=== PATIENT | male | born 1935 | race Caucasian/White ===

== ENCOUNTER → 2018-04-30 | Outpatient (CLI) | payer BC ==
[2015-10-03 14:30] VITALS: BP 182/78
--- NOTE | 2018-04-30 13:46 | RAD ---
Chest, 2 views, 04/30/2018: HISTORY: Pleurisy, right-sided pain Comparison is made to a study from 03/31/2015. The heart size and pulmonary vascularity are normal. No pulmonary infiltrate is seen. No significant pleural fluid is evident. Moderate spurring is present in the spine. IMPRESSION: No acute cardiopulmonary abnormality is detected. Electronically signed by: Leonard Hay MD (04/30/2018 1:42 PM) [facility]
== END | disposition home or self-care (01) ==
LOC: RAD 13:05
PROVIDERS: ATTEND Internal Medicine
DX: M46.04 Spinal enthesopathy, thoracic region (principal); I10 Essential (primary) hypertension; E03.9 Hypothyroidism, unspecified
CPT/HCPCS: 71046

== ENCOUNTER → 2020-12-21 | Outpatient (CLI) | payer BC ==
[2019-03-05 22:08] VITALS: BP 173/86
[~2020-12-21] MED LIST: DIPH25CA58 PO; FAMO-63 PO; PRED20TA PO
--- NOTE | 2020-12-21 16:20 | RAD ---
XR PELVIS 1-2V History: Left iliac crest pain. Comparison: None. Technique: AP view of the pelvis. Findings: Decreased osseous mineralization. Mild bilateral femoral acetabular joint space narrowing and acetabu lar subchondral cystic change. Mild degenerative changes of the sacroiliac joints. Degenerative bean es of lower lumbar spine. Partially visualized penile prostheses components with left pelvic reservoi r. Unremarkable appearance of the iliac crest. Impression: 1. No acute osseous abnormality of the pelvis. 2. Degenerative changes of the hips, sacroiliac joints and lumbar spine. Electronically signed by: Prashant Gao MD (12/21/2020 4:17 PM) [facility]
== END ==
LOC: RAD 13:33
PROVIDERS: ATTEND Internal Medicine
DX: M76.22 Iliac crest spur, left hip (principal); M16.12 Unilateral primary osteoarthritis, left hip; M47.816 Spondylosis without myelopathy or radiculopathy, lumbar region; M46.1 Sacroiliitis, not elsewhere classified
CPT/HCPCS: 72170

== ENCOUNTER 2021-03-21 14:38 | Inpatient (IN) | payer BC ==
[~2021-03-21] VITALS: Ht 172.7 cm; Wt 75.5 kg
[2021-03-21] MEDS ORDERED: IV NORMAL SALINE 1000ML BAG 1,000 ML IV SCH (15:15)
--- NOTE | 2021-03-21 15:28 | PHYS DOC ---
Past Medical History Past Medical History: Depression, GERD, Hypertension, Hypothyroid Past Surgical History: Lumbar Laminectomy Additional Past Surgical Histo: EYE SX, Carotid Sx, Back Surgery Smoking Status: Never Smoker Alcohol Use: Occasionally Drug Use: None General Adult EDM: Chief Complaint: WEAKNESS/GENERALIZED HPI: HPI: Patient is a 86 year old male who presents with began having a cough, shortness of air and weakness this past and there was Covid positive on March 18. His is hospitalized here he states. He states his daughter works up on the fourth floor. He states that his daughter and her the whole family has Covid. He is not sure if he has been vaccinated for Covid. Today's complaint is cough, shortness of air, weakness and unable to care for himself. He states he has not been in bed since yesterday and has not drink any fluids or taken any of his medications. He is hypertensive. Patient rates his overall generalized body aches at a 7 out of 10. He does state that with all the coughing he does have some chest pain. Patient states that he has a history of lumbar laminectomy, hypothyroidism, hypertension, GERD, depression, carotid surgery, eye surgery, back surgery. Review of Systems: Review of Systems: Constitutional: + fever or chills. [] Eyes: Denies change in visual acuity. [] HENT: Denies nasal congestion or sore throat. [] Respiratory: + cough or +shortness of breath. [] Cardiovascular: +chest pain with coughing or edema. [] GI: Denies abdominal pain, nausea, vomiting, bloody stools or diarrhea. + Lack of appetite [] : Denies dysuria. [] Musculoskeletal: Denies back pain or joint pain. + Generalized body aches [] Integument: Denies rash. [] Neurologic: Denies headache, focal weakness or sensory changes. + Dizziness [] Endocrine: Denies polyuria or polydipsia. [] Lymphatic: Denies swollen glands. [] Psychiatric: Denies depression or anxiety. [] Heart Score: C/O Chest Pain: Yes Risk Factors: Risk Factors: DM, Current or recent (<one month) smoker, HTN, HLP, family history of CAD, obesity. Risk Scores: Score 0 - 3: 2.5% MACE over next 6 weeks - Discharge Home Score 4 - 6: 20.3% MACE over next 6 weeks - Admit for Clinical Observation Score 7 - 10: 72.7% MACE over next 6 weeks - Early Invasive Strategies Current Medications: Current Medications Medications (Trade) Dose Ordered Sig/Tiffanie Start Time Stop Time Status Last Admin Dose Admin Methylprednisolone Sodium Succinate (SOLU-Medrol 40MG VIAL) 80 mg 1X ONCE 03/21/21 15:45 03/21/21 15:46 Sodium Chloride 1,000 ml @ 1,000 mls/hr Q1H 03/21/21 15:15 03/21/21 16:14 Allergies: Allergies: Allergies Coded Allergies Type Severity Reaction Last Updated Verified No Known Drug Allergies 10/03/15 No Physical Exam: PE: Constitutional: Well developed, well nourished, no acute distress, non-toxic appearance. [] HENT: Normocephalic, atraumatic, bilateral external ears normal, oropharynx moist, no oral exudates, nose normal. [] Eyes: PERRLA, EOMI, conjunctiva normal, no discharge. [] Neck: Normal range of motion, no tenderness, supple, no stridor. [] Cardiovascular:Heart rate regular rhythm, no murmur [] Lungs & Thorax: Bilateral breath sounds clear and lower diminished to auscultation [] Abdomen: Bowel sounds normal, soft, no tenderness, no masses, no pulsatile masses. [] Skin: Warm, dry, no erythema, no rash. [] Back: No tenderness, no CVA tenderness. [] Extremities: No tenderness, no cyanosis, no clubbing, ROM intact, no edema. [] Neurologic: Alert and oriented X 3, normal motor function, normal sensory fun ction, no focal deficits noted. [] Psychologic: Affect normal, judgement normal, mood normal. [] Current Patient Data: Vital Signs: Vital Signs Date Time Temp Pulse Resp B/P (MAP) Pulse Ox O2 Delivery O2 Flow Rate FiO2 03/21/21 14:55 98.9 67 22 218/93 94 98.9 EKG: EK and read by Dr. Beauchamp as a sinus rhythm and no STEMI Radiology/Procedures: Radiology/Procedures: [] Impression: [facility] [address] [place], [place] [id number] IMAGING REPORT Signed PATIENT: CHANELLE GOMES ACCOUNT: [id number] : 1935 LOCATION: ER AGE: 86 SEX: M EXAM STATUS: REG ER ORD. PHYSICIAN: WILNER SALAS APRN REASON: covid+, soa PROCEDURE: PORTABLE CHEST 1V Portable chest x-ray compared to PA and lateral dated April 302017 for shortness of air, Covid Positive. FINDINGS: There are peripheral infiltrates throughout the right lung concerning for active infection. Less conspicuous fine reticular changes throughout the left lung base may represent infiltrate as well. There is new right atrial enlar gement. No pleural effusions. No pneumothorax. IMPRESSION: 1. Bilateral infiltrates, right greater than left, concerning for active infection. 2. New cardiomegaly with right atrial enlargement. Electronically signed by: Armen Melendez MD (03/21/2021 4:06 PM) [id number] DICTATED and SIGNED BY: ARMEN MELENDEZ MD DATE: 03/21/21 [id number] [facility] [address] [place] [address] IMAGING REPORT Signed PATIENT: CHANELLE GOMES ACCOUNT: [id number] : 1935 LOCATION: ER AGE: 86 SEX: M EXAM STATUS: REG ER ORD. PHYSICIAN: WILNER SALAS APRN REASON: dizziness,jane, hypertensive PROCEDURE: CT HEAD WO CONTRAST PQRS Compliance Statement: One or more of the following individualized dose reduction techniques were utilized for this examination: 1. Automated exposure control 2. Adjustment of the mA and/or kV according to patient size 3. Use of iterative reconstruction technique CT head without contrast 03/21/2021 4:51 PM INDICATION: Dizziness, headache and hypertensive. COMPARISON: None available TECHNIQUE: Multiple axial CT images of the head were obtained from skull base through the vertex without intravenous contrast. FINDINGS: Head: Ventricles, sulci and basal cisterns are within normal limits. There is no hydrocephalus. Knapp-white matter differentiation is normal. There is no acute intracranial hemorrhage. There is no mass, mass effect or midline shift. Posterior fossa is normal in appearance. Visualized portions of the orbits are normal with exception of bilateral lens replacement. Paranasal mild mucosal thickening of the right maxillary sinus. Mild mucosal thickening of ethmoid air cells. Mastoid air cells are well aerated. Scalp and calvaria are normal. IMPRESSION: No acute intracranial hemorrhage. Electronically signed by: Daisy Ramos MD (03/21/2021 5:04 PM) [id number] DICTATED and SIGNED BY: DAISY RAMOS MD DATE: 03/21/21 [id number] Course & Med Decision Making: Course & Med Decision Making Pertinent Labs and Imaging studies reviewed. (See chart for details) See HPI. Alert and oriented x4. Very weak and unable to ambulate at this time. Skin pink warm and dry. Hypertensive. He is given hydralazine and fluids and Zosyn in the ED. He is also given Solu-Medrol. 93% on room air. Speaks in full clear sentences. No respiratory distress. PERRLA. Chest x-ray shows bilateral pneumonia and a new large cardiac. ABG shows hypoxia. Patient is placed on 3 L of oxygen. I called Dr. Sultana and he states to go ahead and admit the patient and start him on Remdesivir. I called pharmacy and they are ordering this. [] Villa Disclaimer: Villa Disclaimer: This electronic medical record was generated, in whole or in part, using a voice recognition dictation system. COVID-19 Patient Risks: Age 65 or older: Yes Sign of co-morbidity: Yes Exp to person + for COVID: Yes Exp to PUI: Yes Travel from affected area: No Lower respiratory symptoms: Yes Fever: No Other: Yes (lack of appetite, dizzy, bodyaches) PPE Use: Full PPE with N95 mask or PAPR: Yes Departure Departure Impression: Primary Impression: Pneumonia due to COVID-19 virus Additional Impression: Hypoxia Disposition: 09 ADMITTED INPATIENT Admitting Physician: Ok Sultana Condition: STABLE Referrals: OK SULTANA MD (PCP) WILNER SALAS APRN Mar 21, 2021 15:28
[2021-03-21] MEDS ORDERED: hydrALAZINE 20 MG/ML VIAL. IVP ONE (15:30)
[2021-03-21] MEDS ORDERED: PIPERACILLIN/TAZOBACTAM 3.375 GM in IV NORMAL SALINE 50ML 50 ML IV ONE (16:00)
--- NOTE | 2021-03-21 16:09 | RAD ---
Portable chest x-ray compared to PA and lateral dated April 302017 for shortness of air, Covi d Positive. FINDINGS: There are peripheral infiltrates throughout the right lung concerning for active infection. Less conspicuous fine reticular changes throughout the left lung base may represent infiltrate as we ll. There is new right atrial enlargement. No pleural effusions. No pneumothorax. IMPRESSION: 1. Bilateral infiltrates, right greater than left, concerning for active infection. 2. New cardiomegaly with right atrial enlargement. Electronically signed by: Armen Giron MD (03/21/2021 4:06 PM) [id number]
[2021-03-21 16:27] LABS: BASE EXCESS COOX 3 mmol/L (-3-3); HCO3 COOX 27 mmol/L (21-28); METHEMOGLOBIN 0.4 % (0.0-1.9); OXYHEMOGLOBIN 88.8 %; PCO2 COOX 40 mmHg (35-46); PO2 COOX 54 mmHg (65-108); SAT O2 COOX 89 % (92-99)
[2021-03-21 16:32] LABS: BASO % 0 % (0-3); EOS % 0 % (0-3); HEMATOCRIT 34.7 % (39.0-53.0); HEMOGLOBIN 11.8 g/dL (13.0-17.5); LYMPH # 0.6 x10^3/uL (1.0-4.8); LYMPH % 16 % (24-48); MEAN CORPUSCULAR HEMOGLOBIN 28 pg (25-35); MEAN CORPUSCULAR HGB CONC 34 g/dL (31-37); MEAN CORPUSCULAR VOLUME 83 fL (79-100); MONO # 0.3 x10^3/uL (0.0-1.1); MONO % 7 % (0-9); NEUT # 3.1 x10^3/uL (1.8-7.7); NEUT % 77 % (31-73); PLATELET COUNT 126 x10^3/uL (140-400); RED BLOOD COUNT 4.19 x10^6/uL (4.30-5.70); RED CELL DISTRIBUTION WIDTH 13.4 % (11.5-14.5)
[2021-03-21] MEDS: methylPREDNISolone SOD SUCC PF 40 MG/ML VIAL. IV ONE ×2 (16:37→16:41)
[2021-03-21 16:42] LABS: CALCIUM 8.3 mg/dL (8.5-10.1)
--- NOTE | 2021-03-21 16:47 | EKG ---
[facility] [address] [place] [address] Test Date: 2021-03-21 Test Time: 16:32:52 Pat Name: CHANELLE MIREYA Department: Room: Gender: M Social Research Assistant: : 1935 Requested By: WILNER SALAS Order Number: [id number] Reading MD: Measurements Intervals Cisco Rate: 67 P: 53 AR: 158 QRS: 46 QRSD: 88 T: 56 QT: 400 QTc: 426 Interpretive Statements SINUS RHYTHM INCOMPLETE RIGHT BUNDLE BRANCH BLOCK OTHERWISE NORMAL ECG RI6.02 No previous ECG available for comparison
[2021-03-21 16:49] LABS: ALBUMIN 3.4 g/dL (3.4-5.0); TOTAL BILIRUBIN 0.4 mg/dL (0.2-1.0); TOTAL PROTEIN 6.9 g/dL (6.4-8.2)
--- NOTE | 2021-03-21 17:06 | RAD ---
RS Compliance Statement: One or more of the following individualized dose reduction techniques were utilized for this examinat ion: 1. Automated exposure control 2. Adjustment of the mA and/or kV according to patient size 3. Use of iterative reconstruction technique CT head without contrast 03/21/2021 4:51 PM INDICATION: Dizziness, headache and hypertensive. COMPARISON: None available TECHNIQUE: Multiple axial CT images of the head were obtained from skull base through the vertex with out intravenous contrast. FINDINGS: Head: Ventricles, sulci and basal cisterns are within normal limits. There is no hydrocephalus. Knapp-white matter differentiation is normal. There is no acute intracranial hemorrhage. There is no mass, mass e ffect or midline shift. Posterior fossa is normal in appearance. Visualized portions of the orbits are normal with exception of bilateral lens replacement. Paranasal mild mucosal thickening of the right maxillary sinus. Mild mucosal thickening of ethmoid air cells. M astoid air cells are well aerated. Scalp and calvaria are normal. IMPRESSION: No acute intracranial hemorrhage. Electronically signed by: Maria Fernanda Carrillo MD (03/21/2021 5:04 PM) [id number]
[2021-03-21] MEDS ORDERED: REMDESIVIR LOAD in IV NORMAL SALINE 250ML TV IV ONE (18:00)
[2021-03-21 19:59] VITALS: BP 122/79
[2021-03-21] MEDS ORDERED: ASPI-630 PO (22:01)
[2021-03-21] MEDS ORDERED: NIFE30TA95 PO (22:01)
[2021-03-21] MEDS ORDERED: ENAL20TA10 PO (22:01)
[2021-03-21] MEDS ORDERED: PANT40TA6 PO (22:01)
[2021-03-21] MEDS ORDERED: SIMV10TA15 PO (22:01)
[2021-03-21] MEDS ORDERED: METO50TA6 PO (22:01)
[2021-03-21] MEDS ORDERED: HYDR-2869 PO (22:01)
[2021-03-21] MEDS ORDERED: FLUO20CA20 PO (22:01)
[2021-03-21] MEDS ORDERED: LEVO75TA5 PO (22:01)
[2021-03-21 23:47] VITALS: BP 196/91
[2021-03-22] VITALS (7 sets, daily range): BP systolic 170–204; BP diastolic 65–92
[2021-03-22] MEDS: hydrALAZINE 20 MG/ML VIAL. IVP PRN ×2 (02:06→15:57)
[2021-03-22] MEDS: PANTOPRAZOLE 40 MG TABLET.DR. PO SCH (06:10)
[2021-03-22] MEDS: LEVOTHYROXINE 75 MCG TABLET PO SCH (06:10)
[2021-03-22] MEDS: FLUoxetine HCL 20 MG CAPSULE PO SCH (08:49)
[2021-03-22] MEDS: METOPROLOL TART IMMED RELEASE 50 MG TABLET. PO SCH ×2 (08:49→20:34)
[2021-03-22] MEDS: LISINOPRIL 20 MG TABLET PO SCH ×2 (08:50→20:33)
[2021-03-22] MEDS: ASPIRIN CHEWABLE 81 MG TABLET. PO SCH (08:51)
[2021-03-22] MEDS: DEXAMETHASONE 4 MG TABLET PO SCH (08:51)
[2021-03-22] MEDS: cefTRIAXone IV Push 1 GM VIAL. IVP SCH (08:54)
--- NOTE | 2021-03-22 09:23 | PDOC ---
Provider Note Date of Service: DATE: 03/22/21 TIME: 09:22 Provider Note Pt seen.H&P dictated.#[id number]. Justifications for Admission Other Justification RAMONE SULTANA MD Mar 22, 2021 09:23
--- NOTE | 2021-03-22 10:27 | CONS ---
DATE OF CONSULTATION: 03/22/2021 PULMONARY CONSULTATION ATTENDING PHYSICIAN: Ok Bucio MD REASON FOR CONSULTATION: Respiratory failure, COVID-19 pneumonia. HISTORY OF PRESENT ILLNESS: The patient is an 86-year-old male who has been recently diagnosed with COVID-19. His entire family is COVID positive. He came into the hospital with increased cough, shortness of breath and hypoxia. His chest x-ray was reviewed and it was consistent with faint bilateral interstitial infiltrates suggestive of COVID-19 pneumonia, more on the right than on the left. He is currently on 3 liters of oxygen and started on remdesivir along with dexamethasone. No headache, no nausea, vomiting. No dysuria. No diarrhea. PAST MEDICAL HISTORY: Significant for depression, GERD, hypertension and hypothyroidism. PAST SURGICAL HISTORY: Laminectomy. ALLERGIES: None. MEDICATIONS: Reviewed as listed in the MRAD. REVIEW OF SYSTEMS: A 12-point system obtained. Pertinent positives as discussed in my history of present illness, otherwise noncontributory. All systems that were negative were reviewed as well. SOCIAL HISTORY: Nonsmoker. PHYSICAL EXAMINATION: VITAL SIGNS: Reviewed. T-max of 99.1, blood pressure on the high side 204 systolic. Pulse ox 97% on 3 liters. GENERAL: Visual exam done. No obvious respiratory distress. No paradoxical breathing. EXTREMITIES: No leg edema. LABORATORY DATA: Reviewed. White cell count 4.0, hemoglobin 11.8, platelets are 126, BUN and creatinine normal. ABGs reviewed, pH 7.45, pCO2 of 40 and a pO2 of 54 on room air. IMPRESSION: 1. Acute hypoxic respiratory failure secondary to COVID-19 viral pneumonia. 2. Abnormal chest x-ray with faint interstitial infiltrates, mostly on the right side suggestive of COVID-19 viral pneumonia. 3. No significant tobacco history. RECOMMENDATIONS: 1. Continue present oxygen, keep saturation 92 and above. Currently stable on 3 liters. 2. Finish the course of dexamethasone along with remdesivir. 3. Lovenox for DVT prophylaxis. 4. Empiric antibiotics initiated. 5. The patient pulmonary status stable. Please call us if his oxygen requirement worsens. Otherwise, we will see him on a p.r.n. basis. SVETLANA DR: Daina TID: [id number]
--- NOTE | 2021-03-22 11:05 | HP ---
ADMIT DATE: 03/21/2021 REASON FOR ADMISSION TO THE HOSPITAL: COVID pneumonia, hypoxia, respiratory failure. HISTORY OF PRESENT ILLNESS: The patient is an 86-year-old male. The patient comes in because of not feeling well, dizzy, lightheaded and shortness of breath. The patient's whole family was contracted COVID. His was in the hospital at least 4-5 days with COVID pneumonia and his daughter, son and son-in-law everybody had exposed to COVID. He was having more difficulty with short of breath, lightheaded, dizzy, came to the Emergency Room. Chest x-ray shows some infiltrate in the lung. His blood pressure was high at 218/93, went up to 222/110. The patient was admitted to the hospital and started on remdesivir and IV Rocephin and dexamethasone. Pulmonary was consulted. PAST MEDICAL HISTORY: The patient has a history of hypertension, GERD, arthritis. He has had a history of anxiety, depression and hyperlipidemia. PAST SURGICAL HISTORY: He denies any major surgeries. ALLERGIES: No known allergies. MEDICATIONS AT HOME: Aspirin 81 mg daily, enalapril 20 mg twice a day, fluoxetine 20 mg daily, hydralazine 50 mg twice a day, levothyroxine 75 mcg daily, metoprolol 50 mg twice a day, nifedipine 30 mg daily, pantoprazole 40 mg daily, simvastatin 10 mg daily. PERSONAL HISTORY: Denies smoking, alcohol or drug abuse. FAMILY HISTORY: Unremarkable. REVIEW OF SYSTEMS: Complains of dizzy, lightheaded, short of breath. Rest of the 14 systems reviewed and negative. PHYSICAL EXAMINATION: GENERAL: The patient is a little bit anxious, worried about his . VITAL SIGNS: Temperature 99, pulse 67, respirations 22, blood pressure, as mentioned, 222/110 now still fluctuates around 200/100. HEENT: Head is atraumatic. Pupils equal. Oral cavity, no congestion. NECK: Supple. Thyroid not elevated. JVD not elevated. CHEST: Symmetrical. CARDIOVASCULAR: S1, S2. LUNGS: Good air entry, few crackles at the base. ABDOMEN: Soft. No mass palpable. EXTERNAL GENITALIA: No Gray. RECTUM: Deferred. EXTREMITIES: No calf tenderness. No edema. NEUROLOGIC: Cranial nerves intact. Power 5/5 in all extremities. No focal deficits noted. LABORATORY DATA: Shows a white count of 4, hemoglobin 12, platelets 126. Sodium 139, potassium 4.0, chloride 99, bicarbonate 30, BUN 18, creatinine 1.0, glucose 95. LFTs normal. BNP 1240. Troponin 0.035. CT head, no acute intracranial hemorrhage. Chest x-ray shows lung infiltrates, cardiomegaly. FINAL IMPRESSION: 1. COVID infection with shortness of breath, possible early pneumonia. 2. Malignant hypertension. 3. History of hypertension. 4. Anxiety, depression, hypothyroidism. PLAN: At this time, the whole family members was tested positive for COVID, now short of breath. The patient was admitted to the hospital, was given remdesivir, dexamethasone and Rocephin. Blood pressure controlled with IV hydralazine. Continue his home medications and oxygen. We will see how he improves in next couple of days. Also, we will give DVT prophylaxis with Lovenox. OCTAVIANO/LESVIA/DAVID DR: Dusty TID: [id number] [facility]
--- NOTE | 2021-03-22 14:01 | NUR ---
SW following. Discussed with RN, pt from home with family, 3L oxygen (does not use oxygen at home), COVID-19 positive. No SW needs at this time. SW will continue to follow.
[2021-03-22] MEDS: ENOXAPARIN 40 MG/0.4 ML SYRINGE. SQ SCH (15:58)
[2021-03-22] MEDS: REMDESIVIR 100mg in NORMAL SALINE 250ML X 4 DAYS IV SCH (17:52)
[2021-03-22] MEDS: SIMVASTATIN 10 MG TABLET PO SCH (20:33)
[2021-03-22] MEDS ORDERED: ZOLPIDEM 5 MG TABLET. PO ONE (23:30)
[2021-03-23 03:00] VITALS: BP 123/69
[2021-03-23] MEDS: PANTOPRAZOLE 40 MG TABLET.DR. PO SCH (06:16)
[2021-03-23] MEDS: LEVOTHYROXINE 75 MCG TABLET PO SCH (06:16)
[2021-03-23 07:00] VITALS: BP 135/75
[2021-03-23] MEDS ORDERED: ONDANSETRON PF 4 MG/2 ML VIAL. IVP PRN (07:00)
--- NOTE | 2021-03-23 09:21 | PDOC ---
PROGRESS NOTES Date of Service: DATE: 03/23/21 TIME: 09:19 Subjective Subjective n/v and feels dizzy Objective Objective Vital Signs Date Time Temp Pulse Resp B/P (MAP) Pulse Ox O2 Delivery O2 Flow Rate FiO2 03/23/21 07:00 97.5 75 18 135/75 (95) 98 Nasal Cannula 3.0 97.5 Intake and Output 03/23/21 07:00 Intake Total 250 ml Output Total 200 ml Balance 50 ml Intake Oral 250 ml Output Urine Total 200 ml # Voids 3 Physical Exam Abdomen: Soft Heart: Regular rate, Normal S1, Normal S2 General: Alert HEENT: Atraumatic MUSCULOSKELETAL: No deformity Neck: Supple Neuro: Normal speech Psych/Mental Status: Mental status NL Skin: No breakdown Diagnosis Problem List Problems Medical Problems: (1) Hypoxia Status: Acute (2) Pneumonia due to COVID-19 virus Status: Acute Assessment Assessment Problems Medical Problems: (1) Hypoxia Status: Acute (2) Pneumonia due to COVID-19 virus Status: Acute FINAL IMPRESSION: 1. COVID infection with shortness of breath, possible early pneumonia. 2. Malignant hypertension. 3. History of hypertension. 4. Anxiety, depression, hypothyroidism. PLAN: zofran for n/v iv Remdesivir ipo dexamethasone iv Rocephin oxygen At this time, the whole family members was tested positive for COVID, now short of breath. The patient was admitted to the hospital, was given remdesivir, dexamethasone and Rocephin. Blood pressure controlled with IV hydralazine. Continue his home medications and oxygen. We will see how he improves in next couple of days. Also, we will give DVT prophylaxis with Lovenox. Plan Plan of Care Problems Medical Problems: (1) Hypoxia Status: Acute (2) Pneumonia due to COVID-19 virus Status: Acute Comment Review of Relevant I have reviewed the following items genoveva (where applicable) has been applied. Labs Microbiology 03/21/21 Blood Culture - Preliminary, Resulted NO GROWTH AFTER 1 DAY Medications Current Medications Enoxaparin Sodium (Lovenox 40mg Syringe) 40 mg Q24H SQ Last administered on 03/22/21at 15:58; Start 03/22/21 at 16:00 Ondansetron HCl (Zofran) 8 mg PRN Q6HRS PRN IVP NAUSEA/VOMITING 1ST CHOICE; Start 03/23/21 at 07:00 Remdesivir 100 mg/ Sodium Chloride 230 ml @ 460 mls/hr Q24H IV Last administered on 03/22/21at 17:52; Start 03/22/21 at 18:00; Stop 03/25/21 at 18:29 Simvastatin (Zocor) 10 mg QHS PO Last administered on 03/22/21at 20:33; Start 03/22/21 at 21:00 Zolpidem Tartrate (Ambien) 5 mg 1X ONCE PO Last administered on 03/22/21at 23:23; Start 03/22/21 at 23:30; Stop 03/22/21 at 23:31; Status DC Vitals/I & O Vital Sign - Last 24 Hours 03/22/21 03/22/21 03/22/21 03/22/21 11:00 15:00 15:57 16:29 Temp 97.8 98.6 97.8 98.6 Pulse 72 73 73 75 Resp 18 18 B/P (MAP) 170/75 (106) 197/92 (127) 197/92 171/69 (103) Pulse Ox 98 97 O2 Delivery Nasal Cannula Nasal Cannula O2 Flow Rate 3.0 3.0 03/22/21 03/22/21 03/22/21 03/22/21 19:00 20:05 20:33 20:33 Temp 96.0 96.0 Pulse 87 87 87 Resp 20 B/P (MAP) 183/90 (121) 183/90 183/90 Pulse Ox 97 O2 Delivery Nasal Cannula Nasal Cannula O2 Flow Rate 3.0 3.0 03/22/21 03/22/21 03/23/21 03/23/21 20:34 23:00 03:00 07:00 Temp 98.6 98.2 97.5 98.6 98.2 97.5 Pulse 87 79 83 75 Resp 18 18 18 B/P (MAP) 183/90 171/71 (104) 123/69 (87) 135/75 (95) Pulse Ox 97 97 98 O2 Delivery Nasal Cannula Nasal Cannula Nasal Cannula O2 Flow Rate 3.0 3.0 3.0 Intake and Output 03/22/21 03/22/21 03/23/21 15:00 23:00 07:00 Intake Total 250 ml 0 ml Output Total 200 ml Balance 250 ml -200 ml Justifications for Admission Other Justification RAMONE SULTANA MD Mar 23, 2021 09:21
[2021-03-23] MEDS: cefTRIAXone IV Push 1 GM VIAL. IVP SCH (10:39)
[2021-03-23] MEDS: DEXAMETHASONE 4 MG TABLET PO SCH (10:40)
[2021-03-23] MEDS: FLUoxetine HCL 20 MG CAPSULE PO SCH (10:40)
[2021-03-23] MEDS: ASPIRIN CHEWABLE 81 MG TABLET. PO SCH (10:40)
[2021-03-23] MEDS: METOPROLOL TART IMMED RELEASE 50 MG TABLET. PO SCH ×2 (10:40→20:35)
[2021-03-23] MEDS: LISINOPRIL 20 MG TABLET PO SCH ×2 (10:41→20:34)
[2021-03-23 11:00] VITALS: BP 96/41
[2021-03-23 15:00] VITALS: BP 109/48
[2021-03-23] MEDS: REMDESIVIR 100mg in NORMAL SALINE 250ML X 4 DAYS IV SCH (17:01)
[2021-03-23] MEDS: ENOXAPARIN 40 MG/0.4 ML SYRINGE. SQ SCH (17:01)
[2021-03-23 20:32] VITALS: BP 168/78
[2021-03-23] MEDS: SIMVASTATIN 10 MG TABLET PO SCH (20:35)
[2021-03-23] MEDS: LACTOBACILLUS RHAMNOSUS GG 1 CAPSULE. PO SCH (20:37)
[2021-03-24 03:00] VITALS: BP 148/74
[2021-03-24 04:44] LABS: BASO % 0 % (0-3); EOS % 0 % (0-3); HEMOGLOBIN 13.3 g/dL (13.0-17.5); LYMPH # 0.7 x10^3/uL (1.0-4.8); LYMPH % 14 % (24-48); MEAN CORPUSCULAR HEMOGLOBIN 28 pg (25-35); MEAN CORPUSCULAR HGB CONC 35 g/dL (31-37); MEAN CORPUSCULAR VOLUME 81 fL (79-100); MONO # 0.4 x10^3/uL (0.0-1.1); MONO % 9 % (0-9); NEUT # 3.5 x10^3/uL (1.8-7.7); NEUT % 77 % (31-73); PLATELET COUNT 195 x10^3/uL (140-400); RED BLOOD COUNT 4.69 x10^6/uL (4.30-5.70); RED CELL DISTRIBUTION WIDTH 13.6 % (11.5-14.5); WHITE BLOOD COUNT 4.6 x10^3/uL (4.0-11.0)
[2021-03-24 05:50] LABS: CALCIUM 8.3 mg/dL (8.5-10.1); CREATININE 0.9 mg/dL (0.7-1.3); GFR 80.2; POTASSIUM 3.2 mmol/L (3.5-5.1)
[2021-03-24] MEDS: LEVOTHYROXINE 75 MCG TABLET PO SCH (06:00)
[2021-03-24 07:00] VITALS: BP 194/85
--- NOTE | 2021-03-24 08:35 | PDOC ---
PROGRESS NOTES Date of Service: DATE: 03/24/21 TIME: 08:35 Subjective Subjective did not sleep well Objective Objective Vital Signs Date Time Temp Pulse Resp B/P (MAP) Pulse Ox O2 Delivery O2 Flow Rate FiO2 03/24/21 07:00 97.0 74 18 194/85 (121) 96 Nasal Cannula 4.0 97.0 Intake and Output 03/24/21 07:00 Output Total 650 ml Balance -650 ml Output Urine Total 650 ml # Voids 2 # Bowel Movements 1 Physical Exam Abdomen: Soft Heart: Regular rate, Normal S1, Normal S2 General: Alert HEENT: Atraumatic MUSCULOSKELETAL: No deformity Neck: Supple Neuro: Normal speech Psych/Mental Status: Mental status NL Skin: No breakdown Diagnosis Problem List Problems Medical Problems: (1) Hypoxia Status: Acute (2) Pneumonia due to COVID-19 virus Status: Acute Assessment Assessment Problems Medical Problems: (1) Hypoxia Status: Acute (2) Pneumonia due to COVID-19 virus Status: Acute FINAL IMPRESSION: 1. COVID infection with shortness of breath, possible early pneumonia. 2. Malignant hypertension. 3. History of hypertension. 4. Anxiety, depression, hypothyroidism. PLAN: ambien at [facility] for n/v iv Remdesivir po dexamethasone iv Rocephin oxygen At this time, the whole family members was tested positive for COVID, now short of breath. The patient was admitted to the hospital, was given remdesivir, dexamethasone and Rocephin. Blood pressure controlled with IV hydralazine. Continue his home medications and oxygen. We will see how he improves in next couple of days. Also, we will give DVT prophylaxis with Lovenox. Plan Plan of Care Problems Medical Problems: (1) Hypoxia Status: Acute (2) Pneumonia due to COVID-19 virus Status: Acute Comment Review of Relevant I have reviewed the following items genoveva (where applicable) has been applied. Labs Laboratory Tests Test 03/24/21 04:30 White Blood Count 4.6 x10^3/uL (4.0-11.0) Red Blood Count 4.69 x10^6/uL (4.30-5.70) Hemoglobin 13.3 g/dL (13.0-17.5) Hematocrit 38.0 % (39.0-53.0) Mean Corpuscular Volume 81 fL (79-100) Mean Corpuscular Hemoglobin 28 pg (25-35) Mean Corpuscular Hemoglobin Concent 35 g/dL (31-37) Red Cell Distribution Width 13.6 % (11.5-14.5) Platelet Count 195 x10^3/uL (140-400) Neutrophils (%) (Auto) 77 % (31-73) Lymphocytes (%) (Auto) 14 % (24-48) Monocytes (%) (Auto) 9 % (0-9) Eosinophils (%) (Auto) 0 % (0-3) Basophils (%) (Auto) 0 % (0-3) Neutrophils # (Auto) 3.5 x10^3/uL (1.8-7.7) Lymphocytes # (Auto) 0.7 x10^3/uL (1.0-4.8) Monocytes # (Auto) 0.4 x10^3/uL (0.0-1.1) Eosinophils # (Auto) 0.0 x10^3/uL (0.0-0.7) Basophils # (Auto) 0.0 x10^3/uL (0.0-0.2) Sodium Level 137 mmol/L (136-145) Potassium Level 3.2 mmol/L (3.5-5.1) Chloride Level 99 mmol/L (98-107) Carbon Dioxide Level 30 mmol/L (21-32) Anion Gap 8 (6-14) Blood Urea Nitrogen 19 mg/dL (8-26) Creatinine 0.9 mg/dL (0.7-1.3) Estimated GFR (Cockcroft-Gault) 80.2 Glucose Level 118 mg/dL (70-99) Calcium Level 8.3 mg/dL (8.5-10.1) Microbiology 03/21/21 Blood Culture - Preliminary, Resulted NO GROWTH AFTER 2 DAYS Medications Current Medications Lactobacillus Rhamnosus (Culturelle) 1 cap BID PO Last administered on 03/23/21at 20:37; Start 03/23/21 at 21:00 Vitals/I & O Vital Sign - Last 24 Hours 03/23/21 03/23/21 03/23/21 03/23/21 10:39 10:40 10:40 10:41 Pulse 75 75 75 75 B/P (MAP) 135/75 135/75 135/75 135/75 8/12/03/23/21 03/23/21 03/23/21 11:00 15:00 20:32 20:32 Temp 98.5 98.7 97.6 98.5 98.7 97.6 Pulse 75 77 82 Resp 18 18 20 B/P (MAP) 96/41 (59) 109/48 (68) 168/78 (108) Pulse Ox 97 95 99 O2 Delivery Nasal Cannula Nasal Cannula Nasal Cannula Nasal Cannula O2 Flow Rate 3.0 3.0 4.0 3.0 03/23/21 03/23/21 03/23/21 03/24/21 20:34 20:35 20:37 03:00 Temp 98.1 98.1 Pulse 82 82 82 80 Resp 18 B/P (MAP) 168/78 168/78 168/78 148/74 (98) Pulse Ox 99 O2 Delivery Nasal Cannula O2 Flow Rate 4.0 03/24/21 07:00 Temp 97.0 97.0 Pulse 74 Resp 18 B/P (MAP) 194/85 (121) Pulse Ox 96 O2 Delivery Nasal Cannula O2 Flow Rate 4.0 Intake and Output 03/23/21 03/23/21 03/24/21 15:00 23:00 07:00 Output Total 350 ml 300 ml Balance -350 ml -300 ml Justifications for Admission Other Justification RAMONE SULTANA MD Mar 24, 2021 08:35
[2021-03-24] MEDS ORDERED: POTASSIUM CHLORIDE 20 MEQ TABLET.ER. PO ONE (08:45)
[2021-03-24] MEDS: cefTRIAXone IV Push 1 GM VIAL. IVP SCH (10:01)
[2021-03-24] MEDS: LISINOPRIL 20 MG TABLET PO SCH ×2 (10:02→21:11)
[2021-03-24] MEDS: LACTOBACILLUS RHAMNOSUS GG 1 CAPSULE. PO SCH ×2 (10:02→21:08)
[2021-03-24] MEDS: METOPROLOL TART IMMED RELEASE 50 MG TABLET. PO SCH ×2 (10:02→21:09)
[2021-03-24] MEDS: DEXAMETHASONE 4 MG TABLET PO SCH (10:03)
[2021-03-24] MEDS: FLUoxetine HCL 20 MG CAPSULE PO SCH (10:03)
[2021-03-24] MEDS: PANTOPRAZOLE 40 MG TABLET.DR. PO SCH (10:03)
[2021-03-24] MEDS: ASPIRIN CHEWABLE 81 MG TABLET. PO SCH (10:03)
[2021-03-24 11:00] VITALS: BP 150/62
--- NOTE | 2021-03-24 12:05 | NUR ---
SW following. Discussed with RN, pt from home with family, 4L (does not use oxygen at home), cardiac diet. COVID-19 positive. RN advised no SW needs at this time. SW will continue to follow.
[2021-03-24 15:00] VITALS: BP 154/67
[2021-03-24] MEDS: ENOXAPARIN 40 MG/0.4 ML SYRINGE. SQ SCH (17:12)
[2021-03-24] MEDS: REMDESIVIR 100mg in NORMAL SALINE 250ML X 4 DAYS IV SCH (17:12)
[2021-03-24 19:00] VITALS: BP 153/70
[2021-03-24] MEDS: ZOLPIDEM 5 MG TABLET. PO PRN (21:08)
[2021-03-24] MEDS: SIMVASTATIN 10 MG TABLET PO SCH (21:09)
[2021-03-25 05:21] LABS: CALCIUM 8.4 mg/dL (8.5-10.1); CREATININE 0.9 mg/dL (0.7-1.3); GFR 80.2; POTASSIUM 3.7 mmol/L (3.5-5.1)
[2021-03-25 07:00] VITALS: BP 146/101
[2021-03-25] MEDS: LACTOBACILLUS RHAMNOSUS GG 1 CAPSULE. PO SCH ×2 (10:01→21:13)
[2021-03-25] MEDS: cefTRIAXone IV Push 1 GM VIAL. IVP SCH (10:01)
[2021-03-25] MEDS: LEVOTHYROXINE 75 MCG TABLET PO SCH (10:02)
[2021-03-25] MEDS: METOPROLOL TART IMMED RELEASE 50 MG TABLET. PO SCH ×2 (10:02→21:13)
[2021-03-25] MEDS: FLUoxetine HCL 20 MG CAPSULE PO SCH (10:02)
[2021-03-25] MEDS: LISINOPRIL 20 MG TABLET PO SCH ×2 (10:02→21:15)
[2021-03-25] MEDS: ASPIRIN CHEWABLE 81 MG TABLET. PO SCH (10:02)
[2021-03-25] MEDS: PANTOPRAZOLE 40 MG TABLET.DR. PO SCH (10:03)
[2021-03-25] MEDS: DEXAMETHASONE 4 MG TABLET PO SCH (10:03)
--- NOTE | 2021-03-25 10:03 | PDOC ---
IM PROGRESS NOTES- Subjective Subjective No complaints of pain or dyspnea. Coughs occasionally. Objective Vitals/I&O Vital Signs Date Time Temp Pulse Resp B/P (MAP) Pulse Ox O2 Delivery O2 Flow Rate FiO2 03/25/21 07:00 98.8 79 20 146/101 (116) 98 Nasal Cannula 3.0 98.8 I & O 0 03/24/21 03/24/21 03/25/21 15:00 23:00 07:00 Output Total 900 ml Balance -900 ml Physical Exam Physical Exam General Appearance - alert and in no distress Chest - decreased breath sounds at bases Heart - S1 and S2 normal Abdomen - soft, non tender Neurological - alert and oriented Musculoskeletal - generalized weakness Extremities - no edema Labs Laboratory Tests Test 03/25/21 04:45 Sodium Level 137 mmol/L (136-145) Potassium Level 3.7 mmol/L (3.5-5.1) Chloride Level 101 mmol/L (98-107) Carbon Dioxide Level 29 mmol/L (21-32) Anion Gap 7 (6-14) Blood Urea Nitrogen 25 mg/dL (8-26) Creatinine 0.9 mg/dL (0.7-1.3) Estimated GFR (Cockcroft-Gault) 80.2 Glucose Level 97 mg/dL (70-99) Calcium Level 8.4 mg/dL (8.5-10.1) L Laboratory Tests 03/25/21 04:45 Assessment Assessment Problems Medical Problems: (1) Hypoxia Status: Acute (2) Pneumonia due to COVID-19 virus Status: Acute FINAL IMPRESSION: 1. COVID infection with shortness of breath, possible early pneumonia. 2. Malignant hypertension. 3. History of hypertension. 4. Anxiety, depression, hypothyroidism. PLAN: COVID-19 pneumonia- iv Remdesivir po dexamethasone iv Rocephin oxygen DVT prophylaxis with Lovenox. At this time, the whole family members was tested positive for COVID, now short of breath. The patient was admitted to the hospital, was given remdesivir, dexamethasone and Rocephin. Hypertension not controlled. Increase hydralazine to 100 mg 3 times a day. Continue metoprolol, lisinopril and other medications. Plan Plan For more details regarding further plans, please refer to the orders. Justifications for Admission Other Justification PERCY CORTES MD Mar 25, 2021 10:03
[2021-03-25 11:28] VITALS: BP 118/70
[2021-03-25 15:00] VITALS: BP 97/67
[2021-03-25] MEDS: ENOXAPARIN 40 MG/0.4 ML SYRINGE. SQ SCH (16:44)
[2021-03-25] MEDS: REMDESIVIR 100mg in NORMAL SALINE 250ML X 4 DAYS IV SCH (17:09)
[2021-03-25 19:00] VITALS: BP 110/56
[2021-03-25] MEDS: SIMVASTATIN 10 MG TABLET PO SCH (21:13)
[2021-03-25] MEDS: ZOLPIDEM 5 MG TABLET. PO PRN (21:15)
[2021-03-25 22:42] VITALS: BP 112/67
[2021-03-26] MEDS: LEVOTHYROXINE 75 MCG TABLET PO SCH (06:00)
[2021-03-26 06:58] VITALS: BP 149/66
[2021-03-26] MEDS: cefTRIAXone IV Push 1 GM VIAL. IVP SCH (08:50)
[2021-03-26] MEDS: LISINOPRIL 20 MG TABLET PO SCH ×2 (08:51→22:37)
[2021-03-26] MEDS: PANTOPRAZOLE 40 MG TABLET.DR. PO SCH (08:52)
[2021-03-26] MEDS: LACTOBACILLUS RHAMNOSUS GG 1 CAPSULE. PO SCH ×2 (08:52→22:37)
[2021-03-26] MEDS: METOPROLOL TART IMMED RELEASE 50 MG TABLET. PO SCH ×2 (08:52→22:37)
[2021-03-26] MEDS: FLUoxetine HCL 20 MG CAPSULE PO SCH (08:52)
[2021-03-26] MEDS: ASPIRIN CHEWABLE 81 MG TABLET. PO SCH (08:52)
[2021-03-26] MEDS: DEXAMETHASONE 4 MG TABLET PO SCH (08:53)
--- NOTE | 2021-03-26 08:53 | PDOC ---
IM PROGRESS NOTES- Subjective Subjective No complaints of pain or dyspnea. Coughs occasionally. Patient states that he has not been able to sleep for 4 nights. Even he took Ambien 2 tablets and could not sleep. Objective Vitals/I&O Vital Signs Date Time Temp Pulse Resp B/P (MAP) Pulse Ox O2 Delivery O2 Flow Rate FiO2 03/26/21 06:58 99.1 73 20 149/66 (93) 95 Room Air 99.1 03/25/21 19:05 3.0 I & O 03/25/21 03/25/21 03/26/21 15:00 23:00 07:00 Intake Total 240 ml 600 ml 500 ml Output Total 250 ml Balance 240 ml 600 ml 250 ml Physical Exam Physical Exam General Appearance - alert and in no distress Chest - decreased breath sounds at bases Heart - S1 and S2 normal Abdomen - soft, non tender Neurological - alert and oriented Musculoskeletal - generalized weakness Extremities - no edema Meds Current Medications Medications (Trade) Dose Ordered Sig/Tiffanie Route PRN Reason Start Time Stop Time Status Last Admin Dose Admin Hydralazine HCl (Apresoline) 100 mg TID PO 03/25/21 10:15 03/25/21 21:13 Assessment Assessment Problems Medical Problems: (1) Hypoxia Status: Acute (2) Pneumonia due to COVID-19 virus Status: Acute FINAL IMPRESSION: 1. COVID infection with shortness of breath, possible early pneumonia. 2. Malignant hypertension. 3. History of hypertension. 4. Anxiety, depression, hypothyroidism. PLAN: COVID-19 pneumonia- iv Remdesivir po dexamethasone iv Rocephin oxygen DVT prophylaxis with Lovenox. At this time, the whole family members was tested positive for COVID, now short of breath. The patient was admitted to the hospital, was given remdesivir, dexamethasone and Rocephin. Hypertension better controlled. Increase hydralazine to 100 mg 3 times a day. Continue metoprolol, lisinopril and other medications. Check labs in a.m. Order chest x-ray. Insomnia-Ambien 10 mg p.o. nightly. Add trazodone 50 mg daily at bedtime. Plan Plan For more details regarding further plans, please refer to the orders. Justifications for Admission Other Justification PERCY CORTES MD Mar 26, 2021 08:52
[2021-03-26] MEDS ORDERED: ZOLPIDEM 5 MG TABLET. PO PRN (10:15)
--- NOTE | 2021-03-26 11:10 | RAD ---
Study: XR CHEST 1V Indication: COVID-19 pneumonia. Comparison: 03/21/2021 Findings: Similar subpleural infiltrates best seen at the mid to upper right lung. No newly developed focal air space abnormality. No layering effusion or pneumothorax. Unchanged cardiomediastinal silhouette and h reese. Increased lung volumes and relative flattening of the diaphragm. Impression: Redemonstration of potential subpleural infiltrates best seen on the right which could be related to an atypical/viral pneumonia in the appropriate clinical setting. There are background findings suspic ious for emphysema if there is a smoking history. Electronically signed by: ZEB TOVAR MD (03/26/2021 11:08 AM) [facility]
[2021-03-26 11:12] VITALS: BP 137/70
[2021-03-26 15:00] VITALS: BP 149/65
[2021-03-26] MEDS: ENOXAPARIN 40 MG/0.4 ML SYRINGE. SQ SCH (17:30)
[2021-03-26 19:00] VITALS: BP 168/83
[2021-03-26] MEDS ORDERED: ZOLPIDEM 5 MG TABLET. PO SCH (21:00)
[2021-03-26] MEDS ORDERED: traZODone 50 MG TABLET. PO SCH (21:00)
[2021-03-26] MEDS: SIMVASTATIN 10 MG TABLET PO SCH (22:37)
[2021-03-26 23:00] VITALS: BP 155/68
[2021-03-27 03:00] VITALS: BP 165/85
[2021-03-27] MEDS: PANTOPRAZOLE 40 MG TABLET.DR. PO SCH (06:13)
[2021-03-27] MEDS: LEVOTHYROXINE 75 MCG TABLET PO SCH (06:13)
[2021-03-27 07:32] LABS: ALBUMIN 3.1 g/dL (3.4-5.0); ALBUMIN/GLOBULIN RATIO 0.9 (1.0-1.7); CALCIUM 8.6 mg/dL (8.5-10.1); POTASSIUM 3.5 mmol/L (3.5-5.1); TOTAL BILIRUBIN 0.6 mg/dL (0.2-1.0); TOTAL PROTEIN 6.6 g/dL (6.4-8.2)
[2021-03-27 07:34] LABS: BASO % 0 % (0-3); EOS % 0 % (0-3); HEMATOCRIT 39.6 % (39.0-53.0); HEMOGLOBIN 13.5 g/dL (13.0-17.5); LYMPH # 1.3 x10^3/uL (1.0-4.8); LYMPH % 19 % (24-48); MEAN CORPUSCULAR HEMOGLOBIN 28 pg (25-35); MEAN CORPUSCULAR HGB CONC 34 g/dL (31-37); MEAN CORPUSCULAR VOLUME 81 fL (79-100); MONO # 0.7 x10^3/uL (0.0-1.1); MONO % 10 % (0-9); NEUT # 4.6 x10^3/uL (1.8-7.7); NEUT % 70 % (31-73); PLATELET COUNT 286 x10^3/uL (140-400); RED BLOOD COUNT 4.87 x10^6/uL (4.30-5.70); RED CELL DISTRIBUTION WIDTH 13.4 % (11.5-14.5); WHITE BLOOD COUNT 6.6 x10^3/uL (4.0-11.0)
--- NOTE | 2021-03-27 09:25 | PDOC ---
PROGRESS NOTES Date of Service: DATE: 03/27/21 TIME: 09:23 Subjective Subjective doing well on RA Objective Objective Vital Signs Date Time Temp Pulse Resp B/P (MAP) Pulse Ox O2 Delivery O2 Flow Rate FiO2 03/27/21 03:00 98.0 68 18 165/85 (111) 95 Room Air 98.0 03/26/21 15:00 3.0 Intake and Output 03/27/21 07:00 Intake Total 1090 ml Output Total 1500 ml Balance -410 ml Intake Oral 1090 ml Output Urine Total 1500 ml Physical Exam Abdomen: Soft Heart: Regular rate, Normal S1, Normal S2 General: Alert HEENT: Atraumatic MUSCULOSKELETAL: No deformity Neck: Supple Neuro: Normal speech Psych/Mental Status: Mental status NL Skin: No breakdown Diagnosis Problem List Problems Medical Problems: (1) Hypoxia Status: Acute (2) Pneumonia due to COVID-19 virus Status: Acute Assessment Assessment Problems Medical Problems: (1) Hypoxia Status: Acute (2) Pneumonia due to COVID-19 virus Status: Acute FINAL IMPRESSION: 1. COVID infection with shortness of breath, possible early pneumonia. 2. Malignant hypertension. 3. History of hypertension. 4. Anxiety, depression, hypothyroidism. PLAN:home today COVID-19 pneumonia- done Remdesivir po dexamethasone d/c Rocephin off oxygen DVT prophylaxis.. At this time, the whole family members was tested positive for COVID, now short of breath. The patient was admitted to the hospital, was given remdesivir, dexamethasone and Rocephin. Hypertension better controlled. Increase hydralazine to 100 mg 3 times a day. Continue metoprolol, lisinopril and other medications. Check labs in a.m. Order chest x-ray. Insomnia-Ambien 10 mg p.o. nightly. Add trazodone 50 mg daily at bedtime. Plan Plan of Care Problems Medical Problems: (1) Hypoxia Status: Acute (2) Pneumonia due to COVID-19 virus Status: Acute Comment Review of Relevant I have reviewed the following items genoveva (where applicable) has been applied. Labs Laboratory Tests Test 03/27/21 06:40 White Blood Count 6.6 x10^3/uL (4.0-11.0) Red Blood Count 4.87 x10^6/uL (4.30-5.70) Hemoglobin 13.5 g/dL (13.0-17.5) Hematocrit 39.6 % (39.0-53.0) Mean Corpuscular Volume 81 fL (79-100) Mean Corpuscular Hemoglobin 28 pg (25-35) Mean Corpuscular Hemoglobin Concent 34 g/dL (31-37) Red Cell Distribution Width 13.4 % (11.5-14.5) Platelet Count 286 x10^3/uL (140-400) Neutrophils (%) (Auto) 70 % (31-73) Lymphocytes (%) (Auto) 19 % (24-48) Monocytes (%) (Auto) 10 % (0-9) Eosinophils (%) (Auto) 0 % (0-3) Basophils (%) (Auto) 0 % (0-3) Neutrophils # (Auto) 4.6 x10^3/uL (1.8-7.7) Lymphocytes # (Auto) 1.3 x10^3/uL (1.0-4.8) Monocytes # (Auto) 0.7 x10^3/uL (0.0-1.1) Eosinophils # (Auto) 0.0 x10^3/uL (0.0-0.7) Basophils # (Auto) 0.0 x10^3/uL (0.0-0.2) Sodium Level 135 mmol/L (136-145) Potassium Level 3.5 mmol/L (3.5-5.1) Chloride Level 100 mmol/L (98-107) Carbon Dioxide Level 29 mmol/L (21-32) Anion Gap 6 (6-14) Blood Urea Nitrogen 25 mg/dL (8-26) Creatinine 1.0 mg/dL (0.7-1.3) Estimated GFR (Cockcroft-Gault) 71.0 BUN/Creatinine Ratio 25 (6-20) Glucose Level 86 mg/dL (70-99) Calcium Level 8.6 mg/dL (8.5-10.1) Total Bilirubin 0.6 mg/dL (0.2-1.0) Aspartate Amino Transf (AST/SGOT) 35 U/L (15-37) Alanine Aminotransferase (ALT/SGPT) 63 U/L (16-63) Alkaline Phosphatase 57 U/L (46-116) Total Protein 6.6 g/dL (6.4-8.2) Albumin 3.1 g/dL (3.4-5.0) Albumin/Globulin Ratio 0.9 (1.0-1.7) Microbiology 03/21/21 Blood Culture - Final, Complete NO GROWTH AFTER 5 DAYS Medications Current Medications Trazodone HCl (Desyrel) 50 mg QHS PO Last administered on 03/26/21at 22:38; Start 03/26/21 at 21:00 Zolpidem Tartrate (Ambien) 5 mg PRN QHS PRN PO INSOMNIA; Start 03/26/21 at 10:15 Zolpidem Tartrate (Ambien) 5 mg QHS PO Last administered on 03/26/21at 22:38; Start 03/26/21 at 21:00 Vitals/I & O Vital Sign - Last 24 Hours 03/26/21 03/26/21 03/26/21 03/26/21 11:12 14:29 15:00 19:00 Temp 97.8 98.5 98.2 97.8 98.5 98.2 Pulse 68 68 67 81 Resp 20 20 18 B/P (MAP) 137/70 (92) 137/70 149/65 (93) 168/83 (111) Pulse Ox 97 97 94 O2 Delivery Nasal Cannula Nasal Cannula Room Air O2 Flow Rate 3.0 3.0 03/26/21 03/26/21 03/26/21 03/26/21 22:30 22:37 22:37 22:37 Pulse 81 81 81 B/P (MAP) 168/83 168/83 168/83 O2 Delivery Room Air 03/26/21 03/27/21 23:00 03:00 Temp 98.6 98.0 98.6 98.0 Pulse 73 68 Resp 18 18 B/P (MAP) 155/68 (97) 165/85 (111) Pulse Ox 96 95 O2 Delivery Room Air Room Air Intake and Output 03/26/21 03/26/21 03/27/21 15:00 23:00 07:00 Intake Total 240 ml 350 ml 500 ml Output Total 400 ml 1100 ml Balance 240 ml -50 ml -600 ml Justifications for Admission Other Justification RAMONE SULTANA MD Mar 27, 2021 09:25
[2021-03-27] MEDS ORDERED: DEXA4TAB63 PO (09:29)
[2021-03-27] MEDS ORDERED: TRAZ-118 PO (09:29)
--- NOTE | 2021-03-27 09:31 | SNU/HH DC ---
DISCHARGE WITH HOME HEALTH DISCHARGE INFORMATION: Discharge Date: Mar 27, 2021 Final Diagnosis: Problems Medical Problems: (1) Hypoxia Status: Acute (2) Pneumonia due to COVID-19 virus Status: Acute Condition on Discharge: Stable CODE STATUS: Code Status: Full HOME HEALTH: Face to Face: I certify this patient is under my care and that I, or a nurse practitioner or physician's case management assistant working with me, had a face to face encounter that meets the physician face to face encounter requirements with this patient on []. Medical Complications: Pneumonia RN For Eval/Treatment: Yes Physical Therapy For: Evalulation/Treatment Home Health Aide For: Self-care [employer]ER TRUCK [employer]IVER For: Community Resources Pt Meets Homebound Status: Poor coordination w/ amb. CERTIFICATION STATEMENT: Certification Statement: Certification Statement: Based on the above finding, I certify that this patient is confined to the home and needs intermittent retirement care, physical therapy and/or speech therapy, or continues to need occupational therapy.~ This patient is under my care, and I have initiated the establishment of the plan of care.~ This patient will be followed by myself or a community physician who will periodically review the plan of care. Home Meds Active Scripts Trazodone Hcl (TRAZODONE HCL) 50 Mg Tablet, 50 MG PO QHS for insomnia for 30 Days, #30 TAB Prov:RAMONE SULTANA MD 03/27/21 Dexamethasone (Decadron) 4 Mg Tablet, 6 MG PO DAILYWBKFT for lungs for 5 Days, #8 TAB Prov:RAMONE SULTANA MD 03/27/21 Reported Medications Aspirin (ASPIRIN) 81 Mg Tab.chew, 81 MG PO DAILY for PPX, TAB.CHEW 03/21/21 Simvastatin (SIMVASTATIN) 10 Mg Tablet, 10 MG PO QHS for HLD 03/21/21 Pantoprazole Sodium (Pantoprazole Sodium) 40 Mg Tablet.dr, 40 MG PO DAILY for GERD 03/21/21 Fluoxetine Hcl (FLUOXETINE HCL) 20 Mg Capsule, 20 MG PO DAILY for DEPRESSION 03/21/21 Levothyroxine Sodium (LEVOTHYROXINE SODIUM) 75 Mcg Tablet, 75 MCG PO DAILY for THYROID 03/21/21 Metoprolol Tartrate (METOPROLOL TARTRATE) 50 Mg Tablet, 50 MG PO BID for HTN 03/21/21 Nifedipine (NIFEDIPINE ER) 30 Mg Tab.er.24, 30 MG PO DAILY for HTN 03/21/21 Enalapril Maleate (ENALAPRIL MALEATE) 20 Mg Tablet, 20 MG PO BID for HTN, TAB 03/21/21 Hydralazine Hcl (HYDRALAZINE HCL) 50 Mg Tablet, 50 MG PO BID for HTN, TAB 03/21/21 RAMONE SULTANA MD Mar 27, 2021 09:31
[2021-03-27] MEDS: cefTRIAXone IV Push 1 GM VIAL. IVP SCH (09:46)
[2021-03-27] MEDS: FLUoxetine HCL 20 MG CAPSULE PO SCH (09:47)
[2021-03-27] MEDS: LACTOBACILLUS RHAMNOSUS GG 1 CAPSULE. PO SCH (09:47)
[2021-03-27] MEDS: DEXAMETHASONE 4 MG TABLET PO SCH (09:48)
[2021-03-27] MEDS: ASPIRIN CHEWABLE 81 MG TABLET. PO SCH (09:48)
[2021-03-27] MEDS: METOPROLOL TART IMMED RELEASE 50 MG TABLET. PO SCH (09:50)
[2021-03-27] MEDS: LISINOPRIL 20 MG TABLET PO SCH (09:51)
[2021-03-27 11:00] VITALS: BP 110/53
--- NOTE | 2021-03-27 11:50 | NUR ---
SW following. Discussed with RN, pt from home with family, room air, cardiac diet. Plan for discharge home tomorrow (03/28/21). SW spoke with pt's daughter, Vera - she does not think the pt will want home health. SW explained if they get home and change their mind, home health can be arranged from their PCP office, Vera verbalized understanding. RN notified. No other SW needs at this time. SW will continue to follow.
--- NOTE | 2021-03-27 15:27 | NUR ---
Discharge Note: [facility] Discharge instructions and discharge home medications reviewed with the patient and a copy given.Also discussed the new meds with Vera (pt's daughter) via phone. All questions have been answered and understanding verbalized. The following instructions and handouts were given: COVID precautions, hand hygiene. Take home meds as directed. Follow up with PCP in weeks. Discontinued lines and drains: peripheral IV intact, patient tolerated removal, no complications noted Patient discharged to home with via wheelchair on RA at 1330 accompanied by the patient's son in law.
== END 2021-03-27 13:30 | disposition home health service (06) | DRG 177 ==
LOC: ER 14:38 → 5 SOUTH 18:50 → ER 18:50 → 5 SOUTH 18:59
PROVIDERS: ADMIT Internal Medicine; ATTEND Internal Medicine
PROC: XW033E5 Introduction of Remdesivir Anti-infective into Peripheral Vein, Percutaneous Approach, New Technology Group 5 (ICD-10-PCS; principal; 2021-03-22)
DX: U07.1 COVID-19 (principal); J12.82 Pneumonia due to coronavirus disease 2019; J96.01 Acute respiratory failure with hypoxia; E03.9 Hypothyroidism, unspecified; E78.5 Hyperlipidemia, unspecified; F32.9 Major depressive disorder, single episode, unspecified; F41.9 Anxiety disorder, unspecified; I11.9 Hypertensive heart disease without heart failure; K21.9 Gastro-esophageal reflux disease without esophagitis; M19.90 Unspecified osteoarthritis, unspecified site; Z79.899 Other long term (current) drug therapy
CPT/HCPCS: 36415; 36600; 70450; 71045; 80048; 80053; 82805; 83605; 83880; 84484; 85025; 87040; 93005; 96365; 96375; J0360; J0696; J1650; J2543; J2920; J7030; J7050; 99285-25; G0378